=== PATIENT | female | born 1930 | race Caucasian/White ===

== ENCOUNTER 2019-11-08 23:38 | Emergency (ER) | payer MEDICARE ==
[2019-11-09 00:46] LABS: BASOPHIL % 0.3 % (0-2); PLATELET COUNT 400 x10^3mcL (130-400)
[2019-11-09 00:49] LABS: RED CELL DISTRIBUTION WIDTH 14.6 % (11.5-14.5)
[2019-11-09 00:53] LABS: CALCIUM 8.7 mg/dL (8.5-10.1); CARBON DIOXIDE 22.5 mmol/L (21-32); CHLORIDE SERUM 104 mmol/L (98-107); CREATININE SERUM 1.5 mg/dL (0.6-1.0); GLUCOSE SERUM 220 mg/dL (74-106); SODIUM SERUM 139 mmol/L (136-145)
[2019-11-09 00:57] LABS: ALKALINE PHOSPHATASE 99 U/L (46-116); ALT/SGPT 47 U/L (14-59); AST/SGOT 49 U/L (15-37); BILIRUBIN TOTAL 0.38 mg/dL (0.20-1.00); LIPASE 163 IU/L (73-393); TOTAL PROTEIN, SERUM 7.5 g/dL (6.4-8.2)
[2019-11-09 00:59] LABS: ALBUMIN 3.2 g/dL (3.4-5.0)
[2019-11-09] MEDS ORDERED: ATENOLOL25 MG PO (04:20)
[2019-11-09] MEDS ORDERED: HYDRALAZINE HCL25 MG PO (04:20)
[2019-11-09] MEDS ORDERED: NOR5 PO (04:21)
[2019-11-09 05:15] VITALS: BP 146/70
== END 2019-11-09 05:15 | disposition short-term general hospital (02) ==
LOC: ED 23:38
PROVIDERS: Emergency Medicine
DX: R10.13 Epigastric pain (principal); D72.829 Elevated white blood cell count, unspecified; I10 Essential (primary) hypertension
CPT/HCPCS: J2270; J2405; J2543; J2765; J7030